=== PATIENT | male | born 1930 | race Caucasian/White ===

== ENCOUNTER → 2016-12-14 | Outpatient (CLI) | payer MEDICARE, OTHER | END | disposition home or self-care (01) | LOC: CFH 12:54 | PROVIDERS: ATTEND Internal Medicine Cardiovascular Disease | DX: I82.441 Acute embolism and thrombosis of right tibial vein (principal) ==

== ENCOUNTER → 2020-02-28 | Outpatient (CLI) | payer MEDICARE ==
[~2020-02-28] MED LIST: ATOR20TA37 PO; CIPR250T2 PO; LEVO88TA4 PO; LISI-167 PO; METF10007 PO; METO25TA91 PO; OMNIPAQUE 350 MG/ML, 100ML BOTTLE ONE
== END | disposition home or self-care (01) ==
LOC: CFH 09:46
PROVIDERS: ATTEND Internal Medicine
DX: R91.8 Other nonspecific abnormal finding of lung field (principal); J98.4 Other disorders of lung; I25.10 Atherosclerotic heart disease of native coronary artery without angina pectoris; K44.9 Diaphragmatic hernia without obstruction or gangrene
CPT/HCPCS: 71260; Q9967

== ENCOUNTER 2020-08-26 09:16 | Emergency (ER) | payer MEDICARE ==
[~2020-08-26] VITALS: Ht 170.2 cm; Wt 79.7 kg
[~2020-08-26 09:16] MED LIST changes: +ERTA1VIA4 IV; -OMNIPAQUE 350 MG/ML, 100ML BOTTLE ONE
--- NOTE | 2020-08-26 10:02 | NUR ---
THIS IS A 89 YR OLD MALE THAT WAS PREVIOUISLY ADMITTED FOR UTI SEPSIS. PT HAD SUPRAPUBIC CATHETER PLACED. PER THE CATHETER BEGAN LEAKING AND SHE TAPED ONE LEAK. THERE APPEARS TO BE MULTIPLE DEFECTS IN WHICH THE LEAK IS PRESESNT. PT PLACED IN BED ON ABSORBENT PADS. AT BEDSIDE.
[2020-08-26] MEDS ORDERED: LIDOCAINE 1%, 10ML ONE (10:53)
--- NOTE | 2020-08-26 11:06 | NUR ---
PT TAKEN TO IR
[2020-08-26] MEDS ORDERED: MIDAZOLAM 1 MG/ML, 5ML ONE (11:13)
[2020-08-26] MEDS ORDERED: FENTANYL PF 100 MCG/2ML ONE (11:13)
[2020-08-26 12:01] VITALS: BP 144/72
--- NOTE | 2020-08-26 12:31 | NUR ---
pt cath bag was changed to leg bag. instructions given to spouse and pt. they verbalized understanding. questions were answered.
== END 2020-08-26 12:43 | disposition home or self-care (01) ==
LOC: ED 09:20
DX: T83.098A Other mechanical complication of other urinary catheter, initial encounter (principal); I10 Essential (primary) hypertension
CPT/HCPCS: 51705; 75984; 99156; 99157; 99285; C1769; J2250; J3010